=== PATIENT | female | born 1990 | race Caucasian/White ===

== ENCOUNTER 2017-08-31 22:05 | Inpatient (IN) | payer BC ==
[~2017-08-31] VITALS: Ht 160 cm; Wt 61.2 kg
[2017-08-31] MEDS ORDERED: CYMBALTA30 MG ORAL (22:10)
[2017-08-31] MEDS ORDERED: IMITREX50 MG ORAL (22:10)
--- NOTE | 2017-08-31 22:11 | Emergency Room Report ---
History of Present Illness General Chief Complaint: Overdose Source: Patient, EMS Present Illness HPI The patient is brought by EMS. She was found unresponsive by the manager hi of the rehabilitation where she is. She's been sober for 5 months but then relapsed using heroin today. She was not trying to take her life. Respiratory rate was 10 and her O2 sat was 70% when paramedics found her. She woke up with Narcan. No cough, chest pain, NVD, dysuria. No headache, no trauma. Not . She denies HIV or hepatitis C. Allergies: Coded Allergies: AMOXICILLIN (Verified Allergy, Unknown, 08/31/17) PENICILLINS (Verified Allergy, Unknown, 08/31/17) Patient History Past Medical History: see triage record Social History: Reports: smoking, drug use Social History Narrative in rehab facility Last Menstrual Period: last week Now: No Reviewed Nursing Documentation: PMH: Agreed, PSxH: Agreed Review of Systems All Other Systems: negative except mentioned in HPI Physical Exam Vital Signs Date Time Temp Pulse Resp B/P (MAP) Pulse Ox O2 Delivery O2 Flow Rate FiO2 08/31/17 22:02 97.5 109 22 114/94 97 Nasal Cannula 4.0 Sp02 EP Interpretation: reviewed, normal General Appearance: well appearing, no apparent distress, GCS 15 Head: normocephalic Eyes: bilateral eye normal inspection, bilateral eye PERRL ENT: moist mucus membranes Neck: supple Respiratory: lungs clear, normal breath sounds - anteriorly Cardiovascular #1: regular rate, rhythm Cardiovascular #2: 2+ radial (R) Gastrointestinal: normal inspection, normal bowel sounds, non tender, no mass, non-distended Musculoskeletal: back normal, gait/station normal, normal range of motion Neurologic: alert, oriented x3, reporting lead III-XII nml as tested, motor strength/tone normal, DTRs symmetric, sensory intact, cerebellar normal, speech normal Psychiatric: depressed affect Skin: normal inspection, warm/dry Medical Decision Making Diagnostic Impression: Primary Impression: Heroin overdose Qualified Codes: T40.1X1A - Poisoning by heroin, accidental (unintentional), initial encounter Additional Impressions: Pneumonia Qualified Codes: J69.0 - Pneumonitis due to inhalation of food and vomit Leukocytosis Qualified Codes: D72.828 - Other elevated white blood cell count ER Course Patient presents after heroin overdose. She woke up with Narcan. At this point we did cafeteria server to make sure that she doesn't relapse into respiratory arrest. In addition we need to exclude a non-cardiogenic or edema and aspiration. Evaluation of the his EKG, chest x-ray, labs. Addition to that she 'll be monitored on the petal cutter. Concern over possible anoxic injry to brain, though non-focal neuro at this time. No SI. X-rays abnormal with right-sided infiltrate. The patient is hypoxemic on oxygen. She has rales at the right base at this time. Blood cultures and antibiotics are begun. The patient needs admission to the hospital as to fairly dense infiltrate in the right lower lobe with increased cummings L also. Sats 98% ib 50% venti mask. Not need intubation. Still significant hypoxia. Will admit to tele Dr. Downey. Laboratory Tests Test 08/31/17 23:05 08/31/17 23:25 White Blood Count 23.6 K/UL (4.8-10.8) *H Red Blood Count 4.22 M/UL (4.20-5.40) Hemoglobin 14.0 G/DL (12.0-16.0) Hematocrit 41.1 % (37.0-47.0) Mean Corpuscular Volume 97 FL (80-99) Mean Corpuscular Hemoglobin 33.2 PG (27.0-31.0) H Mean Corpuscular Hemoglobin Concent 34.1 G/DL (32.0-36.0) Red Cell Distribution Width 11.3 % (11.6-14.8) L Platelet Count 248 K/UL (150-450) Mean Platelet Volume 9.3 FL (6.5-10.1) Neutrophils (%) (Auto) % (45.0-75.0) Lymphocytes (%) (Auto) % (20.0-45.0) Monocytes (%) (Auto) % (1.0-10.0) Eosinophils (%) (Auto) % (0.0-3.0) Basophils (%) (Auto) % (0.0-2.0) Differential Total Cells Counted 100 Neutrophils % (Manual) 85 % (45-75) H Lymphocytes % (Manual) 7 % (20-45) L Monocytes % (Manual) 5 % (1-10) Eosinophils % (Manual) 0 % (0-3) Basophils % (Manual) 0 % (0-2) Band Neutrophils 3 % (0-8) Platelet Estimate Adequate Platelet Morphology Normal Red Blood Cell Morphology Normal Sodium Level 138 mEQ/L (135-145) Potassium Level 3.6 mEQ/L (3.4-4.9) Chloride Level 100 mEQ/L (98-107) Carbon Dioxide Level 27 mEQ/L (20-30) Anion Gap 11 (5-15) Blood Urea Nitrogen 14 mg/dL (7-23) Creatinine 1.0 mg/dL (0.5-0.9) H Estimate Glomerular Filtration Rate > 60 mL/min (>60) Glucose Level 154 mg/dL (74-106) H Calcium Level 8.9 mg/dL (8.6-10.2) Total Bilirubin 0.3 mg/dL (0.0-1.2) Aspartate Amino Transferase (AST) 29 U/L (5-40) Alanine Aminotransferase (ALT) 19 U/L (3-33) Alkaline Phosphatase 49 U/L (35-104) Total Creatine Kinase 71 U/L (26-140) Total Protein 7.2 g/dL (6.6-8.7) Albumin 4.6 g/dL (3.5-5.2) Globulin 2.6 g/dL Albumin/Globulin Ratio 1.7 (1.0-2.7) Salicylates Level < 1 mg/dL (10-30) L Acetaminophen Level < 10 ug/mL (10-30) L Serum Alcohol < 10 mg/dL Urine HCG, Qualitative Negative EKG Diagnostic Results Rate: tachycardiac ST Segments: no acute changes Rhythm Strip Diag. Results EP Interpretation: yes Rhythm: no PVC's, no ectopy, other - Sinus tachycardia Chest X-Ray Diagnostic Results Chest X-Ray Diagnostic Results : Chest X-Ray Ordered: Yes # of Views/Limited/Complete: 1 View Indication: Other Interpretation: no effusion, no pneumothorax, other - Bilateral infiltrates. Right lower lobe dense infiltrate Impression: Other Electronically Signed by: Electronically signed by Rickey Hughes MD Last Vital Signs Date Time Temp Pulse Resp B/P (MAP) Pulse Ox O2 Delivery O2 Flow Rate FiO2 09/02/17 00:44 97.9 80 18 109/62 97 Room Air 09/01/17 08:43 50 09/01/17 04:25 12.0 Status: improved Disposition: ADMITTED INPATIENT Condition: Serious Rickey Hughes M.D. Aug 31, 2017 22:11
[2017-08-31 23:24] LABS: MEAN CORPUSCULAR HEMOGLOBIN 33.2 PG (27.0-31.0); MEAN CORPUSCULAR HGB CONC 34.1 G/DL (32.0-36.0); MEAN CORPUSCULAR VOLUME 97 FL (80-99); MEAN PLATELET VOLUME 9.3 FL (6.5-10.1); PLATELET COUNT 248 K/UL (150-450); RED BLOOD COUNT 4.22 M/UL (4.20-5.40); RED CELL DISTRIBUTION WIDTH 11.3 % (11.6-14.8)
[2017-08-31 23:48] LABS: ACETAMINOPHEN < 10 ug/mL (10-30); ALANINE AMINOTRANSFERASE 19 U/L (3-33); ALBUMIN/GLOBULIN RATIO 1.7 (1.0-2.7); ALCOHOL < 10 mg/dL; ANION GAP 11 (5-15); ASPARTATE AMINO TRANSFERASE 29 U/L (5-40); CALCIUM 8.9 mg/dL (8.6-10.2); CARBON DIOXIDE 27 mEQ/L (20-30); CHLORIDE 100 mEQ/L (98-107); GLOMERULAR FILTRATION RATE > 60 mL/min (>60); HEMOLYSIS 5; POTASSIUM 3.6 mEQ/L (3.4-4.9); SODIUM 138 mEQ/L (135-145); TOTAL PROTEIN 7.2 g/dL (6.6-8.7)
[2017-08-31 23:57] LABS: WHITE BLOOD COUNT 23.6 K/UL (4.8-10.8)
[2017-09-01] VITALS (7 sets, daily range): BP systolic 90–127; BP diastolic 38–69
[2017-09-01 00:40] LABS: BAND NEUTROPHILS % (MANUAL) 3 % (0-8); BASOPHILS % (MANUAL) 0 % (0-2); EOSINOPHILS % (MANUAL) 0 % (0-3); LYMPHOCYTES % (MANUAL) 7 % (20-45); NEUTROPHILS % (MANUAL) 85 % (45-75); PLATELET ESTIMATE ADEQUATE; PLATELET MORPHOLOGY NORMAL; TOTAL CELLS COUNTED 100
[2017-09-01] MEDS ORDERED: cefTRIAXone 1 GM in NS 55 ML IVPB ONE (01:15)
[2017-09-01] MEDS ORDERED: Azithromycin 500 MG in D5W 275 ML IVPB ONE (01:15)
[2017-09-01] MEDS ORDERED: Vancomycin 1 GM in D5W 275 ML IVPB ONE (01:30)
[2017-09-01] MEDS ORDERED: MODAFINIL100 MG ORAL (02:02)
[2017-09-01] MEDS ORDERED: TRAZODONE HCL150 MG ORAL (02:02)
[2017-09-01] MEDS ORDERED: Ipratropium 0.02% Inh Soln 2.5ml UD HHN ONE (02:30)
[2017-09-01] MEDS ORDERED: Albuterol ud Inhalation HHN ONE (02:30)
[2017-09-01] MEDS ORDERED: Vancomycin 1gm inj IVPB ONE (03:24)
[2017-09-01] MEDS ORDERED: DOXEPIN HCL100 MG ORAL (05:23)
[2017-09-01] MEDS ORDERED: IMITREX50 MG ORAL (05:23)
[2017-09-01] MEDS ORDERED: Azithromycin 500mg Inj IV ONE (05:53)
[2017-09-01] MEDS ORDERED: SUMAtriptan 100mg tab ORAL PRN (07:15)
[2017-09-01] MEDS: D5 1/2NS 1,000 ML IV SCH ×3 (08:11→21:45)
--- NOTE | 2017-09-01 10:19 | Diagnostic Imaging Report ---
Indication: Dyspnea Comparison: None A single view chest radiograph was obtained. Findings: Hazy pulmonary opacities, primarily groundglass noted bilaterally. Heart size appears normal. The bones are unremarkable in appearance. Impression: Bilateral infiltrates versus noncardiogenic pulmonary edema. Please correlate clinically.
--- NOTE | 2017-09-01 14:33 | Diagnostic Imaging Report ---
Indication: Dyspnea Comparison: 08/31/17 A single view chest radiograph was obtained. Findings: Interstitial edema seen previously has resolved. Lungs appear clear currently with normal vascularity and heart size. No effusions are seen. The bones are unremarkable. Impression: Negative chest. Interval resolution of interstitial edema
[2017-09-01] MEDS ORDERED: VIIBRYD20 MG PO (14:38)
[2017-09-01] MEDS ORDERED: Promethazine/Codeine 5ml UD ORAL PRN ×2 (14:45→22:45)
[2017-09-01 15:28] LABS: BASOPHILS % (AUTO) 0.8 % (0.0-2.0); LYMPHOCYTES % (AUTO) 25.1 % (20.0-45.0); MEAN CORPUSCULAR HEMOGLOBIN 33.8 PG (27.0-31.0); MEAN CORPUSCULAR HGB CONC 34.5 G/DL (32.0-36.0); MEAN CORPUSCULAR VOLUME 98 FL (80-99); MEAN PLATELET VOLUME 9.8 FL (6.5-10.1); PLATELET COUNT 176 K/UL (150-450); RED BLOOD COUNT 3.57 M/UL (4.20-5.40); WHITE BLOOD COUNT 7.6 K/UL (4.8-10.8)
--- NOTE | 2017-09-01 15:42 | Consultation ---
History of Present Illness General Date patient seen: Sep 01, 2017 Chief Complaint: Overdose Reason for Consultation: pulmonary edema Present Illness HPI 27 year old heroin addict brought by EMS after she was found unresponsive by the manager legal of the rehabilitation where she is. She's been sober for 5 months but then relapsed into heroin today. She was not trying to take her life. Respiratory rate was 10 and her O2 sat was 70% when paramedics found her. She woke up with Narcan. she is admitted to telemetry. Her CXR showed pulmonary edema. Allergies: Coded Allergies: AMOXICILLIN (Verified Allergy, Unknown, 08/31/17) PENICILLINS (Verified Allergy, Unknown, 08/31/17) Medication History Scheduled Doxepin Hcl (Doxepin Hcl*), 100 MG ORAL BEDTIME, (Reported) Modafinil* (Provigil), 100 MG ORAL DAILY, (Reported) Sumatriptan Succinate* (Imitrex*), Unknown Dose ORAL DAILY PRN MIGRAINE, ( Reported) Trazodone* (Trazodone*), 100 MG ORAL BEDTIME, (Reported) Vilazodone Hydrochloride (Viibryd), 20 MG PO DAILY, (Reported) Scheduled PRN Sumatriptan Succinate* (Imitrex*), 100 MG ORAL PRN PRN for Migraine, (Reported) Discontinued Medications Duloxetine Hcl* (Cymbalta*), Unknown Dose ORAL DAILY, (Reported) Discontinued Reason: Pt stopped taking med Patient History Healthcare decision maker Resuscitation status Full Code Advanced Directive on File Past Medical/Surgical History Past Medical/Surgical History: (1) depressio Review of Systems Constitutional: Reports: no symptoms Eye: Reports: no symptoms ENT: Reports: no symptoms Respiratory: Reports: no symptoms Physical Exam General Appearance: WD/WN Lines, tubes and drains: peripheral HEENT: normocephalic, mucous membranes moist Respiratory/Chest: chest wall non-tender, lungs clear Breasts: no masses Cardiovascular/Chest: normal peripheral pulses Abdomen: normal bowel sounds, non tender Genitourinary/Rectal: normal genital exam Last 24 Hour Vital Signs Date Time Temp Pulse Resp B/P (MAP) Pulse Ox O2 Delivery O2 Flow Rate FiO2 09/01/17 11:59 97.0 91 16 90/60 100 Venturi Mask 09/01/17 09:08 96.3 09/01/17 08:43 96.3 94 16 90/38 99 Venturi Mask 50 09/01/17 08:00 101 09/01/17 05:00 100 09/01/17 04:25 97.7 96 17 93/52 98 Room Air 12.0 50 09/01/17 04:00 97.0 62 20 127/68 95 Room Air 09/01/17 04:00 97.7 96 17 93/52 98 Room Air 12.0 50 09/01/17 04:00 97.7 100 23 96/52 96 Room Air 09/01/17 03:10 100 18 100 Venturi Mask 12.0 50 09/01/17 02:53 85 19 Venturi Mask 12.0 50 09/01/17 02:53 86 19 99 Venturi Mask 12.0 50 09/01/17 01:44 97.3 94 15 92/52 93 2.0 08/31/17 22:13 109 22 Nasal Cannula 2.0 08/31/17 22:02 97.5 109 22 114/94 97 Nasal Cannula 4.0 Intake and Output 09/01/17 09/02/17 19:00 07:00 Intake Total 450 ml Balance 450 ml Intake Oral 450 ml # Voids 5 Laboratory Tests Test 08/31/17 23:05 08/31/17 23:25 09/01/17 01:36 09/01/17 14:50 White Blood Count 23.6 K/UL (4.8-10.8) *H Pending Red Blood Count 4.22 M/UL (4.20-5.40) Pending Hemoglobin 14.0 G/DL (12.0-16.0) Pending Hematocrit 41.1 % (37.0-47.0) Pending Mean Corpuscular Volume 97 FL (80-99) Pending Mean Corpuscular Hemoglobin 33.2 PG (27.0-31.0) H Pending Mean Corpuscular Hemoglobin Concent 34.1 G/DL (32.0-36.0) Pending Red Cell Distribution Width 11.3 % (11.6-14.8) L Pending Platelet Count 248 K/UL (150-450) Pending Mean Platelet Volume 9.3 FL (6.5-10.1) Pending Neutrophils (%) (Auto) % (45.0-75.0) Pending Lymphocytes (%) (Auto) % (20.0-45.0) Pending Monocytes (%) (Auto) % (1.0-10.0) Pending Eosinophils (%) (Auto) % (0.0-3.0) Pending Basophils (%) (Auto) % (0.0-2.0) Pending Differential Total Cells Counted 100 Neutrophils % (Manual) 85 % (45-75) H Lymphocytes % (Manual) 7 % (20-45) L Monocytes % (Manual) 5 % (1-10) Eosinophils % (Manual) 0 % (0-3) Basophils % (Manual) 0 % (0-2) Band Neutrophils 3 % (0-8) Platelet Estimate Adequate Platelet Morphology Normal Red Blood Cell Morphology Normal Sodium Level 138 mEQ/L (135-145) Pending Potassium Level 3.6 mEQ/L (3.4-4.9) Pending Chloride Level 100 mEQ/L (98-107) Pending Carbon Dioxide Level 27 mEQ/L (20-30) Pending Anion Gap 11 (5-15) Blood Urea Nitrogen 14 mg/dL (7-23) Pending Creatinine 1.0 mg/dL (0.5-0.9) H Pending Estimat Glomerular Filtration Rate > 60 mL/min (>60) Pending Glucose Level 154 mg/dL (74-106) H Pending Calcium Level 8.9 mg/dL (8.6-10.2) Pending Total Bilirubin 0.3 mg/dL (0.0-1.2) Pending Aspartate Amino Transf (AST/SGOT) 29 U/L (5-40) Pending Alanine Aminotransferase (ALT/SGPT) 19 U/L (3-33) Pending Alkaline Phosphatase 49 U/L (35-104) Pending Total Creatine Kinase 71 U/L (26-140) Total Protein 7.2 g/dL (6.6-8.7) Pending Albumin 4.6 g/dL (3.5-5.2) Pending Globulin 2.6 g/dL Pending Albumin/Globulin Ratio 1.7 (1.0-2.7) Salicylates Level < 1 mg/dL (10-30) L Acetaminophen Level < 10 ug/mL (10-30) L Serum Alcohol < 10 mg/dL Urine HCG, Qualitative Negative Urine Opiates Screen Positive (NEGATIVE) H Urine Barbiturates Screen Negative (NEGATIVE) Phencyclidine (PCP) Screen Negative (NEGATIVE) Urine Amphetamines Screen Negative (NEGATIVE) Urine Benzodiazepines Screen Negative (NEGATIVE) Urine Cocaine Screen Negative (NEGATIVE) Urine Marijuana (THC) Screen Negative (NEGATIVE) Lactic Acid Level 0.90 mmol/L (0.66-2.22) Pro-B-Type Natriuretic Peptide Pending Height (Feet): 5 Height (Inches): 3.00 Weight (Pounds): 135 Medications Current Medications Medications (Trade) Dose Ordered Sig/Madhavi Route PRN Reason Start Time Stop Time Status Last Admin Dose Admin Acetaminophen (Tylenol) 650 mg Q6H PRN ORAL Mild Pain/Temp > 100.5 09/01/17 07:15 10/01/17 07:14 Ceftriaxone Sodium 1 gm/ Dextrose 55 ml @ 110 mls/hr Q24H IVPB 09/02/17 01:00 09/09/17 00:59 Dextrose/Sodium Chloride 1,000 ml @ 125 mls/hr Q8H IV 09/01/17 07:30 10/01/17 07:29 09/01/17 08:11 Ibuprofen (Motrin) 800 mg Q6H PRN ORAL Moderate Pain (Pain Scale 4-6) 09/01/17 07:15 10/01/17 07:14 09/01/17 08:09 Non-Formulary Medication (Non-Formulary Med) 1 ea DAILY ORAL 09/02/17 09:00 10/02/17 08:59 UNV Ondansetron HCl (Zofran) 4 mg Q6H PRN IVP Nausea & Vomiting 09/01/17 07:15 10/01/17 07:14 Promethazine HCl/ Codeine (Phenergan with Codeine) 5 ml Q4H PRN ORAL For Cough 09/01/17 14:45 10/01/17 14:44 Sumatriptan Succinate (Imitrex) 100 mg DAILYPRN PRN ORAL for migraine 09/01/17 07:15 10/01/17 07:14 09/01/17 11:43 Trazodone HCl (Desyrel) 100 mg BEDTIME ORAL 09/01/17 21:00 10/01/17 20:59 Vancomycin HCl (Vanco rx to dose) 1 ea DAILY PRN MISC Per rx protocol 09/01/17 07:15 10/01/17 07:14 Vancomycin/Sodium Chloride 250 ml @ 166.667 mls/hr Q12HR@0400,1600 IVPB 09/01/17 16:00 09/06/17 15:59 Assessment/Plan Problem List: (1) Pulmonary edema ICD Codes: J81.1 - Chronic pulmonary edema SNOMED: 76323419 (2) Leukocytosis ICD Codes: D72.829 - Elevated white blood cell count, unspecified SNOMED: 669271500, 312325676 (3) Heroin overdose ICD Codes: T40.1X1A - Poisoning by heroin, accidental (unintentional), initial encounter SNOMED: 336562655, 02758148 (4) Depression ICD Codes: F32.9 - Major depressive disorder, single episode, unspecified SNOMED: 09365720 Assessment/Plan repeat cxr repeat wbc HIV testing might go home is wbc is normal AYUSH DESAI Sep 01, 2017 15:42
[2017-09-01 15:48] LABS: ALANINE AMINOTRANSFERASE 15 U/L (3-33); ALBUMIN/GLOBULIN RATIO 1.8 (1.0-2.7); ANION GAP 10 (5-15); ASPARTATE AMINO TRANSFERASE 25 U/L (5-40); CALCIUM 8.5 mg/dL (8.6-10.2); CARBON DIOXIDE 26 mEQ/L (20-30); CHLORIDE 104 mEQ/L (98-107); CREATININE 0.9 mg/dL (0.5-0.9); GLOMERULAR FILTRATION RATE > 60 mL/min (>60); HEMOLYSIS 4; POTASSIUM 3.3 mEQ/L (3.4-4.9); SODIUM 140 mEQ/L (135-145)
[2017-09-01] MEDS ORDERED: Vancomycin 750mg/NS 250ml IVPB SCH (16:00)
--- NOTE | 2017-09-01 17:18 | History & Physical ---
History and Physical History & Physicial Nnamdi Downey MD Sep 01, 2017 17:18
[2017-09-01] MEDS ORDERED: TraZODone 100mg tab ORAL SCH (21:00)
[2017-09-01] MEDS ORDERED: Norco 10mg/325mg tab ORAL PRN (21:45)
[2017-09-01] MEDS ORDERED: Cyclobenzaprine 10mg Tab ORAL PRN (21:45)
[2017-09-02 00:44] VITALS: BP 109/62
[2017-09-02] MEDS ORDERED: cefTRIAXone 1 GM in D5W 55 ML IVPB SCH (01:00)
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
[2017-09-02 04:00] VITALS: BP 101/57
[2017-09-02] MEDS ORDERED: Vancomycin 750mg/NS 250ml 250 ML IVPB SCH (04:00)
[2017-09-02] MEDS: D5 1/2NS 1,000 ML IV SCH ×3 (06:00→21:46)
[2017-09-02 07:09] LABS: BASOPHILS % (AUTO) 1.3 % (0.0-2.0); EOSINOPHILS % (AUTO) 2.5 % (0.0-3.0); LYMPHOCYTES % (AUTO) 38.8 % (20.0-45.0); MEAN CORPUSCULAR HEMOGLOBIN 32.5 PG (27.0-31.0); MEAN CORPUSCULAR HGB CONC 33.3 G/DL (32.0-36.0); MEAN CORPUSCULAR VOLUME 98 FL (80-99); MEAN PLATELET VOLUME 9.9 FL (6.5-10.1); MONOCYTES % (AUTO) 8.9 % (1.0-10.0); NEUTROPHILS % (AUTO) 48.4 % (45.0-75.0); PLATELET COUNT 153 K/UL (150-450); RED BLOOD COUNT 3.51 M/UL (4.20-5.40); WHITE BLOOD COUNT 5.6 K/UL (4.8-10.8)
[2017-09-02 07:27] LABS: ANION GAP 11 (5-15); CALCIUM 8.4 mg/dL (8.6-10.2); CARBON DIOXIDE 26 mEQ/L (20-30); CHLORIDE 108 mEQ/L (98-107); CREATININE 0.8 mg/dL (0.5-0.9); GLOMERULAR FILTRATION RATE > 60 mL/min (>60); HEMOLYSIS 5; MAGNESIUM 1.7 mg/dL (1.7-2.5); PHOSPHORUS 2.3 mg/dL (2.5-4.8); POTASSIUM 3.7 mEQ/L (3.4-4.9); SODIUM 145 mEQ/L (135-145)
[2017-09-02 08:00] VITALS: BP_SYST 103; BP_SYST 86; BP_DIAS 52; BP_DIAS 63
[2017-09-02 12:00] VITALS: BP 131/73
--- NOTE | 2017-09-02 13:27 | Internal Med Progress Note ---
Subjective Date of Service: Sep 02, 2017 Physician Name Nnamdi Parrish Attending Physician Nnamdi Downey MD Current Medications Medications (Trade) Dose Ordered Sig/Madhavi Route PRN Reason Start Time Stop Time Status Last Admin Dose Admin Acetaminophen (Tylenol) 650 mg Q6H PRN ORAL Mild Pain/Temp > 100.5 09/02/17 01:15 10/01/17 07:14 Dextrose/Sodium Chloride 1,000 ml @ 125 mls/hr Q8H IV 09/01/17 21:45 10/01/17 07:29 09/02/17 06:00 Ibuprofen (Motrin) 800 mg Q6H PRN ORAL Moderate Pain (Pain Scale 4-6) 09/02/17 01:15 10/01/17 07:14 Non-Formulary Medication (Non-Formulary Med) 1 ea DAILY ORAL 09/02/17 09:00 10/02/17 08:59 UNV Ondansetron HCl (Zofran) 4 mg Q6H PRN IVP Nausea & Vomiting 09/02/17 01:15 10/01/17 07:14 Promethazine HCl/ Codeine (Phenergan with Codeine) 5 ml Q4H PRN ORAL For Cough 09/01/17 22:45 10/01/17 14:44 Sumatriptan Succinate (Imitrex) 100 mg DAILYPRN PRN ORAL for migraine 09/02/17 07:15 10/01/17 07:14 Trazodone HCl (Desyrel) 100 mg BEDTIME ORAL 09/02/17 21:00 10/01/17 20:59 Vancomycin HCl (Vanco rx to dose) 1 ea DAILY PRN MISC Per rx protocol 09/02/17 09:00 10/01/17 07:14 Vancomycin/Sodium Chloride 250 ml @ 166.667 mls/hr Q12HR@0400,1600 IVPB 09/02/17 04:00 09/06/17 15:59 09/02/17 04:45 Allergies: Coded Allergies: AMOXICILLIN (Verified Allergy, Unknown, 08/31/17) PENICILLINS (Verified Allergy, Unknown, 08/31/17) ROS Limited/Unobtainable: No Constitutional: Reports: no symptoms HEENT: Reports: no symptoms Cardiovascular: Reports: no symptoms Respiratory: Reports: no symptoms Gastrointestinal/Abdominal: Reports: no symptoms Genitourinary: Reports: no symptoms Neurologic/Psychiatric: Reports: no symptoms Subjective 27 YO F admitted with respiratory failure and pneumonia. Cover for Int Patrick-Dr Downey Objective Last Vital Signs Date Time Temp Pulse Resp B/P (MAP) Pulse Ox O2 Delivery O2 Flow Rate FiO2 09/02/17 08:00 98.6 86 17 103/63 97 Room Air 09/01/17 08:43 50 09/01/17 04:25 12.0 General Appearance: WD/WN, alert, mild distress EENT: PERRL/EOMI, normal ENT inspection, TMs normal Neck: non-tender, normal alignment, supple Cardiovascular: normal peripheral pulses, normal rate, regular rhythm, no gallop/murmur, no JVD Respiratory/Chest: respiratory distress, decreased breath sounds, crackles/ rales, expiratory wheezing Abdomen: normal bowel sounds, non tender, soft, no organomegaly, no mass Extremities: normal range of motion Neurologic: senior power scheduler II-XII grossly normal, no motor/sensory deficits Skin: normal pigmentation, warm/dry Laboratory Tests Test 09/01/17 14:50 09/02/17 05:45 White Blood Count 7.6 K/UL (4.8-10.8) # 5.6 K/UL (4.8-10.8) Red Blood Count 3.57 M/UL (4.20-5.40) L 3.51 M/UL (4.20-5.40) L Hemoglobin 12.1 G/DL (12.0-16.0) 11.4 G/DL (12.0-16.0) L Hematocrit 35.0 % (37.0-47.0) L 34.3 % (37.0-47.0) L Mean Corpuscular Volume 98 FL (80-99) 98 FL (80-99) Mean Corpuscular Hemoglobin 33.8 PG (27.0-31.0) H 32.5 PG (27.0-31.0) H Mean Corpuscular Hemoglobin Concent 34.5 G/DL (32.0-36.0) 33.3 G/DL (32.0-36.0) Red Cell Distribution Width 11.0 % (11.6-14.8) L 11.0 % (11.6-14.8) L Platelet Count 176 K/UL (150-450) 153 K/UL (150-450) Mean Platelet Volume 9.8 FL (6.5-10.1) 9.9 FL (6.5-10.1) Neutrophils (%) (Auto) 62.0 % (45.0-75.0) 48.4 % (45.0-75.0) Lymphocytes (%) (Auto) 25.1 % (20.0-45.0) 38.8 % (20.0-45.0) Monocytes (%) (Auto) 11.0 % (1.0-10.0) H 8.9 % (1.0-10.0) Eosinophils (%) (Auto) 1.0 % (0.0-3.0) 2.5 % (0.0-3.0) Basophils (%) (Auto) 0.8 % (0.0-2.0) 1.3 % (0.0-2.0) Sodium Level 140 mEQ/L (135-145) 145 mEQ/L (135-145) Potassium Level 3.3 mEQ/L (3.4-4.9) L 3.7 mEQ/L (3.4-4.9) Chloride Level 104 mEQ/L (98-107) 108 mEQ/L (98-107) H Carbon Dioxide Level 26 mEQ/L (20-30) 26 mEQ/L (20-30) Anion Gap 10 (5-15) 11 (5-15) Blood Urea Nitrogen 11 mg/dL (7-23) 12 mg/dL (7-23) Creatinine 0.9 mg/dL (0.5-0.9) 0.8 mg/dL (0.5-0.9) Estimat Glomerular Filtration Rate > 60 mL/min (>60) > 60 mL/min (>60) Glucose Level 97 mg/dL (74-106) 123 mg/dL (74-106) H Calcium Level 8.5 mg/dL (8.6-10.2) L 8.4 mg/dL (8.6-10.2) L Total Bilirubin 0.4 mg/dL (0.0-1.2) Aspartate Amino Transf (AST/SGOT) 25 U/L (5-40) Alanine Aminotransferase (ALT/SGPT) 15 U/L (3-33) Alkaline Phosphatase 38 U/L (35-104) Pro-B-Type Natriuretic Peptide 947 pg/mL (0-125) H Total Protein 6.0 g/dL (6.6-8.7) L Albumin 3.9 g/dL (3.5-5.2) Globulin 2.1 g/dL Albumin/Globulin Ratio 1.8 (1.0-2.7) Phosphorus Level 2.3 mg/dL (2.5-4.8) L Magnesium Level 1.7 mg/dL (1.7-2.5) Microbiology Date/Time Source Procedure Growth Status 09/01/17 01:25 Blood Blood Culture - Preliminary Resulted 09/01/17 01:10 Blood Blood Culture - Preliminary NO GROWTH AFTER 24 HOURS Resulted 09/01/17 04:20 Nasal Nares MRSA Culture - Final NO METHICILLIN RESISTANT STAPH AUREUS... Complete Intake and Output 09/02/17 09/03/17 19:00 07:00 Intake Total 300 ml Balance 300 ml Intake Oral 300 ml # Voids 1 Assessment/Plan Problem List: (1) Opiate dependence, continuous (2) Heroin overdose Assessment & Plan: S/P narcan (3) Pneumonia Assessment & Plan: Cont IV vanco (4) Leukocytosis (5) Pulmonary edema (6) Depression Assessment & Plan: Cont vibrid Status: progressing Assessment/Plan Discharge planning: Sober living vs [facility] NNAMDI PARRISH Sep 02, 2017 13:27
[2017-09-02 16:00] VITALS: BP 116/75
--- NOTE | 2017-09-02 16:10 | Pulmonology Progress Note ---
Assessment/Plan Problems: (1) Bacteremia (2) Pulmonary edema (3) Leukocytosis (4) Depression (5) Heroin overdose Assessment/Plan iv abx check cultures ID evaluation Subjective ROS Limited/Unobtainable: No Constitutional: Reports: no symptoms HEENT: Repors: no symptoms Allergies: Coded Allergies: AMOXICILLIN (Verified Allergy, Unknown, 08/31/17) PENICILLINS (Verified Allergy, Unknown, 08/31/17) Objective Last 24 Hour Vital Signs Date Time Temp Pulse Resp B/P (MAP) Pulse Ox O2 Delivery O2 Flow Rate FiO2 09/02/17 12:00 97.9 65 18 131/73 96 Room Air 09/02/17 08:00 98.6 86 17 103/63 97 Room Air 09/02/17 04:00 97.4 81 18 101/57 97 Room Air 09/02/17 00:44 97.9 80 18 109/62 97 Room Air 09/01/17 21:30 97.8 88 19 100/69 98 Room Air 09/01/17 20:00 97.9 92 16 100/65 99 Room Air Intake and Output 09/02/17 09/03/17 19:00 07:00 Intake Total 1475 ml Balance 1475 ml Intake Oral 600 ml IV Total 875 ml # Voids 2 General Appearance: WD/WN HEENT: normocephalic, atraumatic Respiratory/Chest: chest wall non-tender, lungs clear Breasts: no masses Cardiovascular: normal peripheral pulses Abdomen: normal bowel sounds, no organomegaly Skin: no rash 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 Complete Laboratory Tests 09/02/17 05:45: White Blood Count 5.6, Red Blood Count 3.51L, Hemoglobin 11.4L, Hematocrit 34.3L , Mean Corpuscular Volume 98, Mean Corpuscular Hemoglobin 32.5H, Mean Corpuscular Hemoglobin Concent 33.3, Red Cell Distribution Width 11.0L, Platelet Count 153, Mean Platelet Volume 9.9, Neutrophils (%) (Auto) 48.4, Lymphocytes (%) (Auto) 38.8, Monocytes (%) (Auto) 8.9, Eosinophils (%) (Auto) 2.5, Basophils (%) (Auto) 1.3, Sodium Level 145, Potassium Level 3.7, Chloride Level 108H, Carbon Dioxide Level 26, Anion Gap 11, Blood Urea Nitrogen 12, Creatinine 0.8, Estimat Glomerular Filtration Rate > 60, Glucose Level 123H, Calcium Level 8.4L, Phosphorus Level 2.3L, Magnesium Level 1.7 09/02/17 15:30: Vancomycin Level Trough [Pending] Current Medications Medications (Trade) Dose Ordered Sig/Madhavi Route PRN Reason Start Time Stop Time Status Last Admin Dose Admin Acetaminophen (Tylenol) 650 mg Q6H PRN ORAL Mild Pain/Temp > 100.5 09/02/17 01:15 10/01/17 07:14 Dextrose/Sodium Chloride 1,000 ml @ 125 mls/hr Q8H IV 09/01/17 21:45 10/01/17 07:29 09/02/17 14:13 Ibuprofen (Motrin) 800 mg Q6H PRN ORAL Moderate Pain (Pain Scale 4-6) 09/02/17 01:15 10/01/17 07:14 Non-Formulary Medication (Non-Formulary Med) 1 ea DAILY ORAL 09/02/17 09:00 10/02/17 08:59 UNV Ondansetron HCl (Zofran) 4 mg Q6H PRN IVP Nausea & Vomiting 09/02/17 01:15 10/01/17 07:14 Promethazine HCl/ Codeine (Phenergan with Codeine) 5 ml Q4H PRN ORAL For Cough 09/01/17 22:45 10/01/17 14:44 Sumatriptan Succinate (Imitrex) 100 mg DAILYPRN PRN ORAL for migraine 09/02/17 07:15 10/01/17 07:14 Trazodone HCl (Desyrel) 100 mg BEDTIME ORAL 09/02/17 21:00 10/01/17 20:59 Vancomycin HCl (Vanco rx to dose) 1 ea DAILY PRN MISC Per rx protocol 09/02/17 09:00 10/01/17 07:14 Vancomycin/Sodium Chloride 250 ml @ 166.667 mls/hr Q12HR@0400,1600 IV 09/02/17 04:00 09/06/17 15:59 09/02/17 04:45 AYUSH DESAI Sep 02, 2017 16:10
[2017-09-02] MEDS ORDERED: Vancomycin 1250mg/D5W 250ml 250 ML IVPB ONE (17:00)
[2017-09-02 20:00] VITALS: BP 125/85
[2017-09-02] MEDS: TraZODone 100mg tab ORAL SCH (20:31)
[2017-09-02] MEDS: SUMAtriptan 100mg tab ORAL PRN (21:27)
[2017-09-03 00:16] VITALS: BP 112/70
[2017-09-03] MEDS: D5 1/2NS 1,000 ML IV SCH ×3 (03:46→21:45)
[2017-09-03 04:00] VITALS: BP 106/60
[2017-09-03] MEDS: Vancomycin 1 GM in NS 275 ML IVPB SCH ×2 (05:10→16:51)
[2017-09-03 07:45] LABS: BASOPHILS % (AUTO) 1.4 % (0.0-2.0); EOSINOPHILS % (AUTO) 4.7 % (0.0-3.0); LYMPHOCYTES % (AUTO) 41.2 % (20.0-45.0); MEAN CORPUSCULAR HEMOGLOBIN 33.3 PG (27.0-31.0); MEAN CORPUSCULAR HGB CONC 34.5 G/DL (32.0-36.0); MEAN CORPUSCULAR VOLUME 96 FL (80-99); MEAN PLATELET VOLUME 9.7 FL (6.5-10.1); MONOCYTES % (AUTO) 9.6 % (1.0-10.0); PLATELET COUNT 171 K/UL (150-450); RED BLOOD COUNT 3.74 M/UL (4.20-5.40); RED CELL DISTRIBUTION WIDTH 10.8 % (11.6-14.8); WHITE BLOOD COUNT 5.4 K/UL (4.8-10.8)
[2017-09-03 08:12] LABS: ANION GAP 12 (5-15); CALCIUM 8.7 mg/dL (8.6-10.2); CARBON DIOXIDE 25 mEQ/L (20-30); CHLORIDE 105 mEQ/L (98-107); CREATININE 0.8 mg/dL (0.5-0.9); GLOMERULAR FILTRATION RATE > 60 mL/min (>60); HEMOLYSIS 5; POTASSIUM 3.5 mEQ/L (3.4-4.9); SODIUM 142 mEQ/L (135-145)
--- NOTE | 2017-09-03 11:14 | Infectious Diseases Prog Note ---
Assessment/Plan Assessment/Plan ID consult dictated # [id number] Subjective Allergies: Coded Allergies: AMOXICILLIN (Verified Allergy, Unknown, 08/31/17) PENICILLINS (Verified Allergy, Unknown, 08/31/17) Objective Vital Signs Last 24 Hour Vital Signs Date Time Temp Pulse Resp B/P (MAP) Pulse Ox O2 Delivery O2 Flow Rate FiO2 09/03/17 04:00 97.5 66 18 106/60 98 Room Air 09/03/17 00:16 97.5 62 19 112/70 97 Room Air 09/02/17 20:00 97.7 71 18 125/85 98 Room Air 09/02/17 16:00 97.4 68 16 116/75 98 Room Air 09/02/17 12:00 97.9 65 18 131/73 96 Room Air Height (Feet): 5 Height (Inches): 3.00 Weight (Pounds): 135 Microbiology Date/Time Source Procedure Growth Status 09/01/17 01:25 Blood Blood Culture - Preliminary Resulted 09/01/17 01:10 Blood Blood Culture - Preliminary NO GROWTH AFTER 48 HOURS Resulted 09/01/17 04:20 Nasal Nares MRSA Culture - Final NO METHICILLIN RESISTANT STAPH AUREUS... Complete 09/01/17 04:20 Rectum VRE Culture - Final NO VANCOMYCIN RESISTANT ENTEROCOCCUS ... Complete Laboratory Tests Test 09/02/17 15:30 09/03/17 05:35 Vancomycin Level Trough 6.0 ug/mL (5.0-12.0) White Blood Count 5.4 K/UL (4.8-10.8) Red Blood Count 3.74 M/UL (4.20-5.40) L Hemoglobin 12.4 G/DL (12.0-16.0) Hematocrit 36.1 % (37.0-47.0) L Mean Corpuscular Volume 96 FL (80-99) Mean Corpuscular Hemoglobin 33.3 PG (27.0-31.0) H Mean Corpuscular Hemoglobin Concent 34.5 G/DL (32.0-36.0) Red Cell Distribution Width 10.8 % (11.6-14.8) L Platelet Count 171 K/UL (150-450) Mean Platelet Volume 9.7 FL (6.5-10.1) Neutrophils (%) (Auto) 43.0 % (45.0-75.0) L Lymphocytes (%) (Auto) 41.2 % (20.0-45.0) Monocytes (%) (Auto) 9.6 % (1.0-10.0) Eosinophils (%) (Auto) 4.7 % (0.0-3.0) H Basophils (%) (Auto) 1.4 % (0.0-2.0) Sodium Level 142 mEQ/L (135-145) Potassium Level 3.5 mEQ/L (3.4-4.9) Chloride Level 105 mEQ/L (98-107) Carbon Dioxide Level 25 mEQ/L (20-30) Anion Gap 12 (5-15) Blood Urea Nitrogen 10 mg/dL (7-23) Creatinine 0.8 mg/dL (0.5-0.9) Estimat Glomerular Filtration Rate > 60 mL/min (>60) Glucose Level 88 mg/dL (74-106) Calcium Level 8.7 mg/dL (8.6-10.2) HIV (1&2) Antibody Rapid Negative (NEGATIVE) Current Medications Medications (Trade) Dose Ordered Sig/Madhavi Route PRN Reason Start Time Stop Time Status Last Admin Dose Admin Acetaminophen (Tylenol) 650 mg Q6H PRN ORAL Mild Pain/Temp > 100.5 09/02/17 01:15 10/01/17 07:14 Dextrose/Sodium Chloride 1,000 ml @ 125 mls/hr Q8H IV 09/01/17 21:45 10/01/17 07:29 09/03/17 03:46 Ibuprofen (Motrin) 800 mg Q6H PRN ORAL Moderate Pain (Pain Scale 4-6) 09/02/17 01:15 10/01/17 07:14 Non-Formulary Medication (Non-Formulary Med) 1 ea DAILY ORAL 09/02/17 09:00 10/02/17 08:59 UNV Ondansetron HCl (Zofran) 4 mg Q6H PRN IVP Nausea & Vomiting 09/02/17 01:15 10/01/17 07:14 Promethazine HCl/ Codeine (Phenergan with Codeine) 5 ml Q4H PRN ORAL For Cough 09/01/17 22:45 10/01/17 14:44 Sumatriptan Succinate (Imitrex) 100 mg DAILYPRN PRN ORAL for migraine 09/02/17 07:15 10/01/17 07:14 09/02/17 21:27 Trazodone HCl (Desyrel) 100 mg BEDTIME ORAL 09/02/17 21:00 10/01/17 20:59 09/02/17 20:31 Vancomycin HCl (Vanco rx to dose) 1 ea DAILY PRN MISC Per rx protocol 09/02/17 09:00 10/01/17 07:14 Vancomycin HCl 1 gm/Sodium Chloride 275 ml @ 183.708 mls/hr Q12HR@0500,1700 IVPB 09/03/17 05:00 09/08/17 04:59 09/03/17 05:10 AMY FERRARI Sep 03, 2017 11:14
[2017-09-03 12:00] VITALS: BP 140/65
--- NOTE | 2017-09-03 12:09 | Pulmonology Progress Note ---
Assessment/Plan Problems: (1) Bacteremia (2) Pulmonary edema (3) Leukocytosis (4) Depression (5) Heroin overdose Assessment/Plan iv abx check cultures ID evaluation done check labs repeat cultures Subjective ROS Limited/Unobtainable: No Constitutional: Reports: no symptoms HEENT: Repors: no symptoms Respiratory: Reports: no symptoms Cardiovascular: Reports: no symptoms Allergies: Coded Allergies: AMOXICILLIN (Verified Allergy, Unknown, 08/31/17) PENICILLINS (Verified Allergy, Unknown, 08/31/17) Objective Last 24 Hour Vital Signs Date Time Temp Pulse Resp B/P (MAP) Pulse Ox O2 Delivery O2 Flow Rate FiO2 09/03/17 04:00 97.5 66 18 106/60 98 Room Air 09/03/17 00:16 97.5 62 19 112/70 97 Room Air 09/02/17 20:00 97.7 71 18 125/85 98 Room Air 09/02/17 16:00 97.4 68 16 116/75 98 Room Air General Appearance: WD/WN HEENT: normocephalic, atraumatic Respiratory/Chest: chest wall non-tender, lungs clear Breasts: no masses Cardiovascular: normal rate Abdomen: normal bowel sounds Genitourinary: normal external genitalia Skin: no rash 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 Complete 09/01/17 04:20 Rectum VRE Culture - Final NO VANCOMYCIN RESISTANT ENTEROCOCCUS ... Complete Laboratory Tests 09/02/17 15:30: Vancomycin Level Trough 6.0 09/03/17 05:35: White Blood Count 5.4, Red Blood Count 3.74L, Hemoglobin 12.4, Hematocrit 36.1L , Mean Corpuscular Volume 96, Mean Corpuscular Hemoglobin 33.3H, Mean Corpuscular Hemoglobin Concent 34.5, Red Cell Distribution Width 10.8L, Platelet Count 171, Mean Platelet Volume 9.7, Neutrophils (%) (Auto) 43.0L, Lymphocytes (%) (Auto) 41.2, Monocytes (%) (Auto) 9.6, Eosinophils (%) (Auto) 4.7H, Basophils (%) (Auto) 1.4, Sodium Level 142, Potassium Level 3.5, Chloride Level 105, Carbon Dioxide Level 25, Anion Gap 12, Blood Urea Nitrogen 10, Creatinine 0.8, Estimat Glomerular Filtration Rate > 60, Glucose Level 88, Calcium Level 8.7, HIV (1&2) Antibody Rapid Negative Current Medications Medications (Trade) Dose Ordered Sig/Madhavi Route PRN Reason Start Time Stop Time Status Last Admin Dose Admin Acetaminophen (Tylenol) 650 mg Q6H PRN ORAL Mild Pain/Temp > 100.5 09/02/17 01:15 10/01/17 07:14 Dextrose/Sodium Chloride 1,000 ml @ 125 mls/hr Q8H IV 09/01/17 21:45 10/01/17 07:29 09/03/17 03:46 Ibuprofen (Motrin) 800 mg Q6H PRN ORAL Moderate Pain (Pain Scale 4-6) 09/02/17 01:15 10/01/17 07:14 Non-Formulary Medication (Non-Formulary Med) 1 ea DAILY ORAL 09/02/17 09:00 10/02/17 08:59 UNV Ondansetron HCl (Zofran) 4 mg Q6H PRN IVP Nausea & Vomiting 09/02/17 01:15 10/01/17 07:14 Promethazine HCl/ Codeine (Phenergan with Codeine) 5 ml Q4H PRN ORAL For Cough 09/01/17 22:45 10/01/17 14:44 Sumatriptan Succinate (Imitrex) 100 mg DAILYPRN PRN ORAL for migraine 09/02/17 07:15 10/01/17 07:14 09/02/17 21:27 Trazodone HCl (Desyrel) 100 mg BEDTIME ORAL 09/02/17 21:00 10/01/17 20:59 09/02/17 20:31 Vancomycin HCl (Vanco rx to dose) 1 ea DAILY PRN MISC Per rx protocol 09/02/17 09:00 10/01/17 07:14 Vancomycin HCl 1 gm/Sodium Chloride 275 ml @ 183.708 mls/hr Q12HR@0500,1700 IVPB 09/03/17 05:00 09/08/17 04:59 09/03/17 05:10 AYUSH DESAI Sep 03, 2017 12:09
--- NOTE | 2017-09-03 14:44 | Internal Med Progress Note ---
Subjective Date of Service: Sep 03, 2017 Physician Name Nnamdi Parrish Attending Physician Nnamdi Downey MD Current Medications Medications (Trade) Dose Ordered Sig/Madhavi Route PRN Reason Start Time Stop Time Status Last Admin Dose Admin Acetaminophen (Tylenol) 650 mg Q6H PRN ORAL Mild Pain/Temp > 100.5 09/02/17 01:15 10/01/17 07:14 Dextrose/Sodium Chloride 1,000 ml @ 125 mls/hr Q8H IV 09/01/17 21:45 10/01/17 07:29 09/03/17 13:03 Ibuprofen (Motrin) 800 mg Q6H PRN ORAL Moderate Pain (Pain Scale 4-6) 09/02/17 01:15 10/01/17 07:14 09/03/17 13:02 Non-Formulary Medication (Non-Formulary Med) 1 ea DAILY ORAL 09/02/17 09:00 10/02/17 08:59 UNV Ondansetron HCl (Zofran) 4 mg Q6H PRN IVP Nausea & Vomiting 09/02/17 01:15 10/01/17 07:14 Promethazine HCl/ Codeine (Phenergan with Codeine) 5 ml Q4H PRN ORAL For Cough 09/01/17 22:45 10/01/17 14:44 Sumatriptan Succinate (Imitrex) 100 mg DAILYPRN PRN ORAL for migraine 09/02/17 07:15 10/01/17 07:14 09/02/17 21:27 Trazodone HCl (Desyrel) 100 mg BEDTIME ORAL 09/02/17 21:00 10/01/17 20:59 09/02/17 20:31 Vancomycin HCl (Vanco rx to dose) 1 ea DAILY PRN MISC Per rx protocol 09/02/17 09:00 10/01/17 07:14 Vancomycin HCl 1 gm/Sodium Chloride 275 ml @ 183.708 mls/hr Q12HR@0500,1700 IVPB 09/03/17 05:00 09/08/17 04:59 09/03/17 05:10 Allergies: Coded Allergies: AMOXICILLIN (Verified Allergy, Unknown, 08/31/17) PENICILLINS (Verified Allergy, Unknown, 08/31/17) ROS Limited/Unobtainable: No Constitutional: Reports: no symptoms HEENT: Reports: other - headahe Cardiovascular: Reports: no symptoms Respiratory: Reports: no symptoms Gastrointestinal/Abdominal: Reports: nausea Genitourinary: Reports: no symptoms Neurologic/Psychiatric: Reports: no symptoms Subjective 27 YO F admitted with respiratory failure and pneumonia. Cover for Int Patrick-Dr Downey. C/O nausea and headache Objective Last Vital Signs Date Time Temp Pulse Resp B/P (MAP) Pulse Ox O2 Delivery O2 Flow Rate FiO2 09/03/17 12:00 97.8 74 20 140/65 100 Room Air 09/01/17 08:43 50 09/01/17 04:25 12.0 Laboratory Tests Test 09/02/17 15:30 09/03/17 05:35 Vancomycin Level Trough 6.0 ug/mL (5.0-12.0) White Blood Count 5.4 K/UL (4.8-10.8) Red Blood Count 3.74 M/UL (4.20-5.40) L Hemoglobin 12.4 G/DL (12.0-16.0) Hematocrit 36.1 % (37.0-47.0) L Mean Corpuscular Volume 96 FL (80-99) Mean Corpuscular Hemoglobin 33.3 PG (27.0-31.0) H Mean Corpuscular Hemoglobin Concent 34.5 G/DL (32.0-36.0) Red Cell Distribution Width 10.8 % (11.6-14.8) L Platelet Count 171 K/UL (150-450) Mean Platelet Volume 9.7 FL (6.5-10.1) Neutrophils (%) (Auto) 43.0 % (45.0-75.0) L Lymphocytes (%) (Auto) 41.2 % (20.0-45.0) Monocytes (%) (Auto) 9.6 % (1.0-10.0) Eosinophils (%) (Auto) 4.7 % (0.0-3.0) H Basophils (%) (Auto) 1.4 % (0.0-2.0) Sodium Level 142 mEQ/L (135-145) Potassium Level 3.5 mEQ/L (3.4-4.9) Chloride Level 105 mEQ/L (98-107) Carbon Dioxide Level 25 mEQ/L (20-30) Anion Gap 12 (5-15) Blood Urea Nitrogen 10 mg/dL (7-23) Creatinine 0.8 mg/dL (0.5-0.9) Estimat Glomerular Filtration Rate > 60 mL/min (>60) Glucose Level 88 mg/dL (74-106) Calcium Level 8.7 mg/dL (8.6-10.2) HIV (1&2) Antibody Rapid Negative (NEGATIVE) Microbiology Date/Time Source Procedure Growth Status 09/01/17 01:25 Blood Blood Culture - Preliminary Resulted 09/01/17 01:10 Blood Blood Culture - Preliminary NO GROWTH AFTER 48 HOURS Resulted 09/01/17 04:20 Nasal Nares MRSA Culture - Final NO METHICILLIN RESISTANT STAPH AUREUS... Complete 09/01/17 04:20 Rectum VRE Culture - Final NO VANCOMYCIN RESISTANT ENTEROCOCCUS ... 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
[2017-09-03] MEDS: SUMAtriptan 100mg tab ORAL PRN (15:08)
[2017-09-03] MEDS ORDERED: D5 1/2NS 1000ml IV ONE ×2 (15:43)
[2017-09-03 16:00] VITALS: BP 118/78
[2017-09-03] MEDS ORDERED: Milk of Magnesia 30ml Ud ORAL PRN (16:30)
[2017-09-03] MEDS: Docusate 100mg cap ORAL SCH (17:00)
[2017-09-03 20:00] VITALS: BP 109/66
[2017-09-03] MEDS: TraZODone 100mg tab ORAL SCH (20:25)
[2017-09-04 04:00] VITALS: BP 103/57
[2017-09-04] MEDS: Vancomycin 1 GM in NS 275 ML IVPB SCH ×2 (04:06→16:28)
[2017-09-04] MEDS: D5 1/2NS 1,000 ML IV SCH ×3 (05:33→21:45)
[2017-09-04 08:00] VITALS: BP 95/61
[2017-09-04] MEDS: Docusate 100mg cap ORAL SCH ×2 (08:30→17:28)
--- NOTE | 2017-09-04 08:30 | Cardiology Report ---
APPROVED REPORT EXAM: Two-dimensional and M-mode echocardiogram with Doppler and color Doppler. INDICATION Left ventricular function M-Mode DIMENSIONS IVSd0.7 (0.7-1.1cm)Left Atrium (MM)3.0 (1.6-4.0cm) LVDd4.6 (3.5-5.6cm)Aortic Root2.3 (2.0-3.7cm) PWd0.9 (0.7-1.1cm)Aortic Cusp Exc.1.8 (1.5-2.0cm) LVDs3.2 (2.5-4.0cm) PWs1.2 cm Normal left ventricular chamber size, systolic function and wall motion. Left ventricular ejection fraction estimated to be 55 %. No evidence of left ventricular hypertrophy. No evidence of pericardial effusion. All other cardiac chamber sizes are within normal limits. Normal appearing aortic, mitral, pulmonic and tricuspid valves. IVC dilated at 2.0 cm with physiologic collapse. A color flow and spectral Doppler study was performed and revealed: No aortic regurgitation. Trace mitral regurgitation. Mitral inflow indicate normal left ventricular diastolic function. Mild tricuspid regurgitation. Tricuspid systolic velocities suggests peak right ventricular systolic pressure of 30 mmHg. No pulmonic regurgitation present.
[2017-09-04 09:11] LABS: ALANINE AMINOTRANSFERASE 19 U/L (12-78); ANION GAP 8 (5-15); ASPARTATE AMINO TRANSFERASE 20 U/L (15-37); CALCIUM 7.7 MG/DL (8.5-10.1); CARBON DIOXIDE 25 MMOL/L (21-32); CHLORIDE 104 MMOL/L (98-107); CREATININE 0.9 MG/DL (0.55-1.30); GLOMERULAR FILTRATION RATE > 60 mL/min (>60); MAGNESIUM 1.7 MG/DL (1.8-2.4); PHOSPHORUS 4.2 MG/DL (2.5-4.9); POTASSIUM 3.3 MMOL/L (3.5-5.1); SODIUM 137 MMOL/L (136-145); TOTAL PROTEIN 5.7 G/DL (6.4-8.2)
[2017-09-04 09:14] LABS: CRP QUANT < 0.2 mg/dL (0.00-0.90)
[2017-09-04 09:20] LABS: MEAN CORPUSCULAR HEMOGLOBIN 33.7 PG (27.0-31.0); MEAN CORPUSCULAR HGB CONC 35.7 G/DL (32.0-36.0); MEAN CORPUSCULAR VOLUME 94 FL (80-99); RED BLOOD COUNT 3.66 M/UL (4.20-5.40); RED CELL DISTRIBUTION WIDTH 10.6 % (11.6-14.8)
[2017-09-04 09:21] LABS: MEAN PLATELET VOLUME 10.8 FL (6.5-10.1); PLATELET COUNT 179 K/UL (150-450); WHITE BLOOD COUNT 6.2 K/UL (4.8-10.8)
[2017-09-04 09:22] LABS: BASOPHILS % (AUTO) 1.9 % (0.0-2.0); EOSINOPHILS % (AUTO) 5.5 % (0.0-3.0); LYMPHOCYTES % (AUTO) 38.6 % (20.0-45.0); MONOCYTES % (AUTO) 8.2 % (1.0-10.0); NEUTROPHILS % (AUTO) 45.8 % (45.0-75.0)
[2017-09-04 11:02] LABS: ERYTHROCYTE SEDIMENTATION RATE 8 MM/HR (0-20)
--- NOTE | 2017-09-04 11:41 | Internal Med Progress Note ---
Subjective Date of Service: Sep 04, 2017 Physician Name oLrenNnamdi Attending Physician Nnamdi Downey MD Current Medications Medications (Trade) Dose Ordered Sig/Madhavi Route PRN Reason Start Time Stop Time Status Last Admin Dose Admin Acetaminophen (Tylenol) 650 mg Q6H PRN ORAL Mild Pain/Temp > 100.5 09/02/17 01:15 10/01/17 07:14 Dextrose/Sodium Chloride 1,000 ml @ 125 mls/hr Q8H IV 09/01/17 21:45 10/01/17 07:29 09/04/17 05:33 Docusate Sodium (Colace) 100 mg TWICE A DAY ORAL 09/03/17 18:00 10/03/17 17:59 09/04/17 08:30 Ibuprofen (Motrin) 800 mg Q6H PRN ORAL Moderate Pain (Pain Scale 4-6) 09/02/17 01:15 10/01/17 07:14 09/03/17 13:02 Magnesium Hydroxide (Mom) 30 ml DAILYPRN PRN ORAL Constipation 09/03/17 16:30 10/03/17 16:29 09/03/17 16:51 Non-Formulary Medication (Non-Formulary Med) 1 ea DAILY ORAL 09/02/17 09:00 10/02/17 08:59 UNV Ondansetron HCl (Zofran) 4 mg Q6H PRN IVP Nausea & Vomiting 09/02/17 01:15 10/01/17 07:14 09/03/17 15:08 Promethazine HCl/ Codeine (Phenergan with Codeine) 5 ml Q4H PRN ORAL For Cough 09/01/17 22:45 10/01/17 14:44 Sumatriptan Succinate (Imitrex) 100 mg DAILYPRN PRN ORAL for migraine 09/02/17 07:15 10/01/17 07:14 09/03/17 15:08 Trazodone HCl (Desyrel) 100 mg BEDTIME ORAL 09/02/17 21:00 10/01/17 20:59 09/03/17 20:25 Vancomycin HCl (Vanco rx to dose) 1 ea DAILY PRN MISC Per rx protocol 09/02/17 09:00 10/01/17 07:14 Vancomycin HCl 1 gm/Sodium Chloride 275 ml @ 183.708 mls/hr Q12HR@0500,1700 IVPB 09/03/17 05:00 09/08/17 04:59 09/04/17 04:06 Allergies: Coded Allergies: AMOXICILLIN (Verified Allergy, Unknown, 08/31/17) PENICILLINS (Verified Allergy, Unknown, 08/31/17) ROS Limited/Unobtainable: No Constitutional: Reports: no symptoms HEENT: Reports: other - headache Respiratory: Reports: no symptoms Gastrointestinal/Abdominal: Reports: nausea Genitourinary: Reports: no symptoms Neurologic/Psychiatric: Reports: no symptoms Subjective 27 YO F admitted with respiratory failure and pneumonia. Cover for Int Med-Dr Downey. C/O nausea and headache. Await placement in sober living Objective Last Vital Signs Date Time Temp Pulse Resp B/P (MAP) Pulse Ox O2 Delivery O2 Flow Rate FiO2 09/04/17 08:00 97.0 62 16 95/61 97 Room Air 09/01/17 08:43 50 09/01/17 04:25 12.0 Laboratory Tests Test 09/04/17 07:25 White Blood Count 6.2 K/UL (4.8-10.8) Red Blood Count 3.66 M/UL (4.20-5.40) L Hemoglobin 12.3 G/DL (12.0-16.0) Hematocrit 34.5 % (37.0-47.0) L Mean Corpuscular Volume 94 FL (80-99) Mean Corpuscular Hemoglobin 33.7 PG (27.0-31.0) H Mean Corpuscular Hemoglobin Concent 35.7 G/DL (32.0-36.0) Red Cell Distribution Width 10.6 % (11.6-14.8) L Platelet Count 179 K/UL (150-450) Mean Platelet Volume 10.8 FL (6.5-10.1) H Neutrophils (%) (Auto) 45.8 % (45.0-75.0) Lymphocytes (%) (Auto) 38.6 % (20.0-45.0) Monocytes (%) (Auto) 8.2 % (1.0-10.0) Eosinophils (%) (Auto) 5.5 % (0.0-3.0) H Basophils (%) (Auto) 1.9 % (0.0-2.0) Erythrocyte Sedimentation Rate 8 MM/HR (0-20) Sodium Level 137 MMOL/L (136-145) Potassium Level 3.3 MMOL/L (3.5-5.1) L Chloride Level 104 MMOL/L (98-107) Carbon Dioxide Level 25 MMOL/L (21-32) Anion Gap 8 (5-15) Blood Urea Nitrogen 11 mg/dL (7-18) Creatinine 0.9 MG/DL (0.55-1.30) Estimat Glomerular Filtration Rate > 60 mL/min (>60) Glucose Level 97 MG/DL (74-106) Calcium Level 7.7 MG/DL (8.5-10.1) L Phosphorus Level 4.2 MG/DL (2.5-4.9) Magnesium Level 1.7 MG/DL (1.8-2.4) L Total Bilirubin 0.3 MG/DL (0.2-1.0) Aspartate Amino Transf (AST/SGOT) 20 U/L (15-37) Alanine Aminotransferase (ALT/SGPT) 19 U/L (12-78) Alkaline Phosphatase 67 U/L (46-116) C-Reactive Protein, Quantitative < 0.2 mg/dL (0.00-0.90) Total Protein 5.7 G/DL (6.4-8.2) L Albumin 2.9 G/DL (3.4-5.0) L Globulin 2.8 g/dL Albumin/Globulin Ratio 1.0 (1.0-2.7) Objective General Appearance: WD/WN, alert, mild distress EENT: PERRL/EOMI, normal ENT inspection, TMs normal Neck: non-tender, normal alignment, supple Cardiovascular: normal peripheral pulses, normal rate, regular rhythm, no gallop/murmur, no JVD Respiratory/Chest: respiratory distress, decreased breath sounds, crackles/ rales, expiratory wheezing Abdomen: normal bowel sounds, non tender, soft, no organomegaly, no mass Extremities: normal range of motion 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
[2017-09-04 12:00] VITALS: BP 103/68
[2017-09-04] MEDS: SUMAtriptan 100mg tab ORAL PRN ×2 (12:12→16:29)
--- NOTE | 2017-09-04 14:30 | Consultation ---
DATE OF CONSULTATION: 09/03/2017 INFECTIOUS DISEASE CONSULTATION This consult is for coverage of Dr. Ku. PRIMARY ATTENDING: Nnamdi Downey M.D. REASON FOR CONSULT: Positive blood culture bacteremia. HISTORY OF PRESENT ILLNESS: This 27-year-old white female, admitted on 09/01/2017 because of altered mental status. The patient has history of substance abuse and had depression. She had been sober for past five months. On the day of admission, she injected heroin. She was found to be unresponsive. She had decrease in O2 saturation. She received Narcan at the field. Initially, she has pulmonary infiltrates that resolved in the next day chest x-ray. She also has leukocytosis. Blood culture coming back positive for Gram-positive cocci. PAST MEDICAL HISTORY: Depression, substance abuse, and migraine headache. MEDICATIONS: Vancomycin, trazodone, Imitrex, Tylenol, ibuprofen, Phenergan With Codeine, and Zofran. ALLERGIES: Allergic to amoxicillin, penicillin, developed hives. SOCIAL HISTORY: She lives in rehab. Smoking three to four cigarettes a day. History of substance abuse as mentioned. She is single, has no child. REVIEW OF SYSTEMS: Dry cough. No fever. No chills. No nausea. No vomiting. No diarrhea. PHYSICAL EXAMINATION: GENERAL APPEARANCE: No acute distress. VITAL SIGNS: Temperature is 97.5 degrees, pulse 66, and blood pressure 106/60. HEAD AND NECK: She uses glasses. Slightly whitish tongue. HEART: S1 and S2 regular. LUNGS: Clear. ABDOMEN: Soft and nontender. EXTREMITIES: No edema. LABORATORY AND DIAGNOSTIC DATA: WBC is 5.4, hemoglobin 12.4, hematocrit 36.1, and platelets is 171,000. Sodium 142, potassium 3.5, chloride 105, bicarbonate 25, BUN 10, creatinine 0.8, and glucose 88. HIV test is negative. Chest x-ray at the time of admission showed pulmonary edema versus infiltrate. The next day chest x-ray was negative with resolution of the edema. MRSA screen was negative. Blood culture x1, Gram-positive cocci. VRE screen was negative. IMPRESSION: 1. Bacteremia. We try to rule out sepsis versus contamination. The patient has pulmonary edema likely aspiration pneumonitis. 2. Heroin poisoning. 3. Penicillin allergy. 4. Depression. RECOMMENDATION: We will continue with IV vancomycin. We will follow up the cultures. At the end of my exam, I thank Dr. Downey, for involving me in the care of this patient. Gerald Gamble M.D. DR: Lolis JOB#: [id number] CC:
--- NOTE | 2017-09-04 14:41 | Infectious Diseases Prog Note ---
Assessment/Plan Assessment/Plan IMPRESSION: #1/4 CoNS Bacteremia.- suspect contamination, however since patient is IVDA, CoNS could be a real pathogen and cause endocarditis, will obtain repeat Bcx #Pulmonary edema upon admission, resolved on repeat CXR #Leukocytosis (up to 23), down to 7 the next day- likely reactive or lab spurr # Heroin poisoning. -hiv ag/ab neg #. Penicillin allergy. #. Depression. RECOMMENDATION: -We will continue with IV vancomycin #3 for now awaiting repeat Bcx -2 sets of bcx -if persistently + Bcx, then check 2d Echo, +/- [place] -monitor CBC/BMP, temperatures -Aspiration precautions Discussd with RN. Subjective Allergies: Coded Allergies: AMOXICILLIN (Verified Allergy, Unknown, 08/31/17) PENICILLINS (Verified Allergy, Unknown, 08/31/17) Subjective c/o of migraine headahce afebrile no leukocytosis Objective Vital Signs Last 24 Hour Vital Signs Date Time Temp Pulse Resp B/P (MAP) Pulse Ox O2 Delivery O2 Flow Rate FiO2 09/04/17 12:00 97.8 62 17 103/68 97 Room Air 09/04/17 08:00 97.0 62 16 95/61 97 Room Air 09/04/17 04:00 97.7 69 16 103/57 94 Room Air 09/03/17 20:00 98.0 69 18 109/66 98 Room Air 09/03/17 16:00 98.1 68 18 118/78 97 Room Air Height (Feet): 5 Height (Inches): 3.00 Weight (Pounds): 135 Objective GENERAL APPEARANCE: No acute distress.. HEAD AND NECK: PERRL, no oral lesions HEART: S1 and S2 regular. LUNGS: Clear. ABDOMEN: Soft and nontender. EXTREMITIES: No edema. no cellulitis Laboratory Tests Test 09/04/17 07:25 White Blood Count 6.2 K/UL (4.8-10.8) Red Blood Count 3.66 M/UL (4.20-5.40) L Hemoglobin 12.3 G/DL (12.0-16.0) Hematocrit 34.5 % (37.0-47.0) L Mean Corpuscular Volume 94 FL (80-99) Mean Corpuscular Hemoglobin 33.7 PG (27.0-31.0) H Mean Corpuscular Hemoglobin Concent 35.7 G/DL (32.0-36.0) Red Cell Distribution Width 10.6 % (11.6-14.8) L Platelet Count 179 K/UL (150-450) Mean Platelet Volume 10.8 FL (6.5-10.1) H Neutrophils (%) (Auto) 45.8 % (45.0-75.0) Lymphocytes (%) (Auto) 38.6 % (20.0-45.0) Monocytes (%) (Auto) 8.2 % (1.0-10.0) Eosinophils (%) (Auto) 5.5 % (0.0-3.0) H Basophils (%) (Auto) 1.9 % (0.0-2.0) Erythrocyte Sedimentation Rate 8 MM/HR (0-20) Sodium Level 137 MMOL/L (136-145) Potassium Level 3.3 MMOL/L (3.5-5.1) L Chloride Level 104 MMOL/L (98-107) Carbon Dioxide Level 25 MMOL/L (21-32) Anion Gap 8 (5-15) Blood Urea Nitrogen 11 mg/dL (7-18) Creatinine 0.9 MG/DL (0.55-1.30) Estimat Glomerular Filtration Rate > 60 mL/min (>60) Glucose Level 97 MG/DL (74-106) Calcium Level 7.7 MG/DL (8.5-10.1) L Phosphorus Level 4.2 MG/DL (2.5-4.9) Magnesium Level 1.7 MG/DL (1.8-2.4) L Total Bilirubin 0.3 MG/DL (0.2-1.0) Aspartate Amino Transf (AST/SGOT) 20 U/L (15-37) Alanine Aminotransferase (ALT/SGPT) 19 U/L (12-78) Alkaline Phosphatase 67 U/L (46-116) C-Reactive Protein, Quantitative < 0.2 mg/dL (0.00-0.90) Total Protein 5.7 G/DL (6.4-8.2) L Albumin 2.9 G/DL (3.4-5.0) L Globulin 2.8 g/dL Albumin/Globulin Ratio 1.0 (1.0-2.7) Current Medications Medications (Trade) Dose Ordered Sig/Madhavi Route PRN Reason Start Time Stop Time Status Last Admin Dose Admin Acetaminophen (Tylenol) 650 mg Q6H PRN ORAL Mild Pain/Temp > 100.5 09/02/17 01:15 10/01/17 07:14 Dextrose/Sodium Chloride 1,000 ml @ 125 mls/hr Q8H IV 09/01/17 21:45 10/01/17 07:29 09/04/17 13:56 Docusate Sodium (Colace) 100 mg TWICE A DAY ORAL 09/03/17 18:00 10/03/17 17:59 09/04/17 08:30 Ibuprofen (Motrin) 800 mg Q6H PRN ORAL Moderate Pain (Pain Scale 4-6) 09/02/17 01:15 10/01/17 07:14 09/03/17 13:02 Magnesium Hydroxide (Mom) 30 ml DAILYPRN PRN ORAL Constipation 09/03/17 16:30 10/03/17 16:29 09/03/17 16:51 Non-Formulary Medication (Non-Formulary Med) 1 ea DAILY ORAL 09/02/17 09:00 10/02/17 08:59 UNV Ondansetron HCl (Zofran) 4 mg Q6H PRN IVP Nausea & Vomiting 09/02/17 01:15 10/01/17 07:14 09/03/17 15:08 Promethazine HCl/ Codeine (Phenergan with Codeine) 5 ml Q4H PRN ORAL For Cough 09/01/17 22:45 10/01/17 14:44 Sumatriptan Succinate (Imitrex) 100 mg DAILYPRN PRN ORAL for migraine 09/02/17 07:15 10/01/17 07:14 09/04/17 12:12 Trazodone HCl (Desyrel) 100 mg BEDTIME ORAL 09/02/17 21:00 10/01/17 20:59 09/03/17 20:25 Vancomycin HCl (Vanco rx to dose) 1 ea DAILY PRN MISC Per rx protocol 09/02/17 09:00 10/01/17 07:14 Vancomycin HCl 1 gm/Sodium Chloride 275 ml @ 183.708 mls/hr Q12HR@0500,1700 IVPB 09/03/17 05:00 09/08/17 04:59 09/04/17 04:[address] M.D. Sep 04, 2017 14:41
--- NOTE | 2017-09-04 15:15 | Pulmonology Progress Note ---
Assessment/Plan Problems: (1) Bacteremia (2) Pulmonary edema (3) Leukocytosis (4) Depression (5) Heroin overdose Assessment/Plan iv abx check cultures ID evaluation done check labs repeat cultures bc is GPC,coag negative, most likely contaminated. dc if repeat cultures are negative Subjective ROS Limited/Unobtainable: No Constitutional: Reports: no symptoms HEENT: Repors: no symptoms Respiratory: Reports: no symptoms Allergies: Coded Allergies: AMOXICILLIN (Verified Allergy, Unknown, 08/31/17) PENICILLINS (Verified Allergy, Unknown, 08/31/17) Objective Last 24 Hour Vital Signs Date Time Temp Pulse Resp B/P (MAP) Pulse Ox O2 Delivery O2 Flow Rate FiO2 09/04/17 12:00 97.8 62 17 103/68 97 Room Air 09/04/17 08:00 97.0 62 16 95/61 97 Room Air 09/04/17 04:00 97.7 69 16 103/57 94 Room Air 09/03/17 20:00 98.0 69 18 109/66 98 Room Air 09/03/17 16:00 98.1 68 18 118/78 97 Room Air Intake and Output 09/04/17 09/05/17 19:00 07:00 Intake Total 1100 ml Balance 1100 ml Intake Oral 350 ml IV Total 750 ml # Voids 1 General Appearance: WD/WN HEENT: normocephalic Respiratory/Chest: chest wall non-tender, normal breath sounds Breasts: no masses Cardiovascular: normal peripheral pulses Abdomen: normal bowel sounds, soft, non tender Genitourinary: normal external genitalia Extremities: no clubbing 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 Laboratory Tests 09/04/17 07:25: White Blood Count 6.2, Red Blood Count 3.66L, Hemoglobin 12.3, Hematocrit 34.5L , Mean Corpuscular Volume 94, Mean Corpuscular Hemoglobin 33.7H, Mean Corpuscular Hemoglobin Concent 35.7, Red Cell Distribution Width 10.6L, Platelet Count 179, Mean Platelet Volume 10.8H, Neutrophils (%) (Auto) 45.8, Lymphocytes (%) (Auto) 38.6, Monocytes (%) (Auto) 8.2, Eosinophils (%) (Auto) 5.5H, Basophils (%) (Auto) 1.9, Erythrocyte Sedimentation Rate 8, Sodium Level 137, Potassium Level 3.3L, Chloride Level 104, Carbon Dioxide Level 25, Anion Gap 8, Blood Urea Nitrogen 11, Creatinine 0.9, Estimat Glomerular Filtration Rate > 60, Glucose Level 97, Calcium Level 7.7L, Phosphorus Level 4.2, Magnesium Level 1.7L, Total Bilirubin 0.3, Aspartate Amino Transf (AST/SGOT) 20 , Alanine Aminotransferase (ALT/SGPT) 19, Alkaline Phosphatase 67, C-Reactive Protein, Quantitative < 0.2, Total Protein 5.7L, Albumin 2.9L, Globulin 2.8, Albumin/Globulin Ratio 1.0 Current Medications Medications (Trade) Dose Ordered Sig/Madhavi Route PRN Reason Start Time Stop Time Status Last Admin Dose Admin Acetaminophen (Tylenol) 650 mg Q6H PRN ORAL Mild Pain/Temp > 100.5 09/02/17 01:15 10/01/17 07:14 Dextrose/Sodium Chloride 1,000 ml @ 125 mls/hr Q8H IV 09/01/17 21:45 10/01/17 07:29 09/04/17 13:56 Docusate Sodium (Colace) 100 mg TWICE A DAY ORAL 09/03/17 18:00 10/03/17 17:59 09/04/17 08:30 Ibuprofen (Motrin) 800 mg Q6H PRN ORAL Moderate Pain (Pain Scale 4-6) 09/02/17 01:15 10/01/17 07:14 09/03/17 13:02 Magnesium Hydroxide (Mom) 30 ml DAILYPRN PRN ORAL Constipation 09/03/17 16:30 10/03/17 16:29 09/03/17 16:51 Non-Formulary Medication (Non-Formulary Med) 1 ea DAILY ORAL 09/02/17 09:00 10/02/17 08:59 UNV Ondansetron HCl (Zofran) 4 mg Q6H PRN IVP Nausea & Vomiting 09/02/17 01:15 10/01/17 07:14 09/03/17 15:08 Promethazine HCl/ Codeine (Phenergan with Codeine) 5 ml Q4H PRN ORAL For Cough 09/01/17 22:45 10/01/17 14:44 Sumatriptan Succinate (Imitrex) 100 mg DAILYPRN PRN ORAL for migraine 09/02/17 07:15 10/01/17 07:14 09/04/17 12:12 Trazodone HCl (Desyrel) 100 mg BEDTIME ORAL 09/02/17 21:00 10/01/17 20:59 09/03/17 20:25 Vancomycin HCl (Vanco rx to dose) 1 ea DAILY PRN MISC Per rx protocol 09/02/17 09:00 10/01/17 07:14 Vancomycin HCl 1 gm/Sodium Chloride 275 ml @ 183.708 mls/hr Q12HR@0500,1700 IVPB 09/03/17 05:00 09/08/17 04:59 09/04/17 04:06 AYUSH DESAI Sep 04, 2017 15:15
[2017-09-04 16:00] VITALS: BP 126/81
[2017-09-04] MEDS ORDERED: SUMAtriptan 6mg/0.5ml Inj SUBQ PRN (16:00)
[2017-09-04 20:45] VITALS: BP 122/76
[2017-09-04] MEDS: TraZODone 100mg tab ORAL SCH (20:52)
[2017-09-05 00:54] VITALS: BP 119/68
[2017-09-05 04:00] VITALS: BP 106/67
[2017-09-05] MEDS: D5 1/2NS 1,000 ML IV SCH ×2 (04:40→13:46)
[2017-09-05 08:00] VITALS: BP 108/68
[2017-09-05] MEDS ORDERED: Vancomycin 1.25 GM in NS 275 ML IVPB SCH (08:00)
[2017-09-05] MEDS: Docusate 100mg cap ORAL SCH (09:25)
[2017-09-05] MEDS: Vancomycin 1250mg/D5W 250ml IVPB SCH ×2 (09:25→16:00)
[2017-09-05 12:00] VITALS: BP 117/80
[2017-09-05 16:00] VITALS: BP 122/82
--- NOTE | 2017-09-05 16:57 | Infectious Diseases Prog Note ---
Assessment/Plan Assessment/Plan IMPRESSION: #1/4 CoNS Bacteremia.- suspect contamination, Echo neg, repeat Bcx NTD, afebrile -Repeat Bcx 09/04 NTD -TTE: no vegetations or significant abnormal valves seen #Pulmonary edema upon admission, resolved on repeat CXR #Leukocytosis (up to 23), down to 7 the next day- likely reactive or lab spurr # Heroin poisoning. -hiv ag/ab neg #. Penicillin allergy. #. Depression. RECOMMENDATION: -D/C IV Vancomcyin #4 as likely contaminant in bcx -Ok to discharge to facility off abx -f/u final repeat Bcx -monitor CBC/BMP, temperatures -Aspiration precautions Discussd with RN and case briefer Subjective Allergies: Coded Allergies: AMOXICILLIN (Verified Allergy, Unknown, 08/31/17) PENICILLINS (Verified Allergy, Unknown, 08/31/17) Subjective afebrile no leukocytosis Bcx 09/04 NTD (per micro lab) Objective Vital Signs Last 24 Hour Vital Signs Date Time Temp Pulse Resp B/P (MAP) Pulse Ox O2 Delivery O2 Flow Rate FiO2 09/05/17 16:00 98.2 91 18 122/82 Room Air 09/05/17 12:00 97.9 84 18 117/80 97 Room Air 09/05/17 08:00 97.8 79 18 108/68 97 Room Air 09/05/17 04:00 98.0 79 18 106/67 98 Room Air 09/05/17 00:54 97.7 65 18 119/68 97 Room Air 09/04/17 20:45 97.5 70 19 122/76 97 Room Air Height (Feet): 5 Height (Inches): 3.00 Weight (Pounds): 135 Objective not done as already discharged Laboratory Tests Test 09/05/17 04:45 Vancomycin Level Trough 5.4 ug/mL (5.0-12.0) Current Medications Medications (Trade) Dose Ordered Sig/Madhavi Route PRN Reason Start Time Stop Time Status Last Admin Dose Admin Acetaminophen (Tylenol) 650 mg Q6H PRN ORAL Mild Pain/Temp > 100.5 09/02/17 01:15 10/01/17 07:14 Dextrose/Sodium Chloride 1,000 ml @ 125 mls/hr Q8H IV 09/01/17 21:45 10/01/17 07:29 09/05/17 13:46 Docusate Sodium (Colace) 100 mg TWICE A DAY ORAL 09/03/17 18:00 10/03/17 17:59 09/05/17 09:25 Ibuprofen (Motrin) 800 mg Q6H PRN ORAL Moderate Pain (Pain Scale 4-6) 09/02/17 01:15 10/01/17 07:14 09/05/17 09:40 Magnesium Hydroxide (Mom) 30 ml DAILYPRN PRN ORAL Constipation 09/03/17 16:30 10/03/17 16:29 09/03/17 16:51 Ondansetron HCl (Zofran) 4 mg Q6H PRN IVP Nausea & Vomiting 09/02/17 01:15 10/01/17 07:14 09/03/17 15:08 Promethazine HCl/ Codeine (Phenergan with Codeine) 5 ml Q4H PRN ORAL For Cough 09/01/17 22:45 10/01/17 14:44 Sumatriptan Succinate (Imitrex) 6 mg DAILY PRN SUBQ migrane 09/04/17 16:00 10/04/17 15:59 Sumatriptan Succinate (Imitrex) 100 mg DAILYPRN PRN ORAL for migraine 09/02/17 07:15 10/01/17 07:14 09/04/17 16:29 Trazodone HCl (Desyrel) 100 mg BEDTIME ORAL 09/02/17 21:00 10/01/17 20:59 09/04/17 20:52 Vancomycin HCl (Vanco rx to dose) 1 ea DAILY PRN MISC Per rx protocol 09/02/17 09:00 10/01/17 07:14 Vancomycin HCl/ Dextrose 250 ml @ 166.667 mls/hr Q12HR@0800,1600 IVPB 09/05/17 08:00 09/10/17 07:59 09/05/17 09:[address] M.D. Sep 05, 2017 16:57
--- NOTE | 2017-09-05 17:11 | Internal Med Progress Note ---
Subjective Date of Service: Sep 05, 2017 Physician Name Nnamdi Parrish Attending Physician Nnamdi Downey MD Current Medications Medications (Trade) Dose Ordered Sig/Madhavi Route PRN Reason Start Time Stop Time Status Last Admin Dose Admin Acetaminophen (Tylenol) 650 mg Q6H PRN ORAL Mild Pain/Temp > 100.5 09/02/17 01:15 10/01/17 07:14 Dextrose/Sodium Chloride 1,000 ml @ 125 mls/hr Q8H IV 09/01/17 21:45 10/01/17 07:29 09/05/17 13:46 Docusate Sodium (Colace) 100 mg TWICE A DAY ORAL 09/03/17 18:00 10/03/17 17:59 09/05/17 09:25 Ibuprofen (Motrin) 800 mg Q6H PRN ORAL Moderate Pain (Pain Scale 4-6) 09/02/17 01:15 10/01/17 07:14 09/05/17 09:40 Magnesium Hydroxide (Mom) 30 ml DAILYPRN PRN ORAL Constipation 09/03/17 16:30 10/03/17 16:29 09/03/17 16:51 Ondansetron HCl (Zofran) 4 mg Q6H PRN IVP Nausea & Vomiting 09/02/17 01:15 10/01/17 07:14 09/03/17 15:08 Promethazine HCl/ Codeine (Phenergan with Codeine) 5 ml Q4H PRN ORAL For Cough 09/01/17 22:45 10/01/17 14:44 Sumatriptan Succinate (Imitrex) 6 mg DAILY PRN SUBQ migrane 09/04/17 16:00 10/04/17 15:59 Sumatriptan Succinate (Imitrex) 100 mg DAILYPRN PRN ORAL for migraine 09/02/17 07:15 10/01/17 07:14 09/04/17 16:29 Trazodone HCl (Desyrel) 100 mg BEDTIME ORAL 09/02/17 21:00 10/01/17 20:59 09/04/17 20:52 Vancomycin HCl (Vanco rx to dose) 1 ea DAILY PRN MISC Per rx protocol 09/02/17 09:00 10/01/17 07:14 Vancomycin HCl/ Dextrose 250 ml @ 166.667 mls/hr Q12HR@0800,1600 IVPB 09/05/17 08:00 09/10/17 07:59 09/05/17 09:25 Allergies: Coded Allergies: AMOXICILLIN (Verified Allergy, Unknown, 08/31/17) PENICILLINS (Verified Allergy, Unknown, 08/31/17) ROS Limited/Unobtainable: No Constitutional: Reports: no symptoms HEENT: Reports: no symptoms Cardiovascular: Reports: no symptoms Respiratory: Reports: no symptoms Gastrointestinal/Abdominal: Reports: no symptoms Genitourinary: Reports: no symptoms Neurologic/Psychiatric: Reports: no symptoms Subjective 27 YO F admitted with respiratory failure and pneumonia. Cover for Int Patrick-Dr Downey. C/O nausea and headache. Await discharge to [facility] sober living. Objective Last Vital Signs Date Time Temp Pulse Resp B/P (MAP) Pulse Ox O2 Delivery O2 Flow Rate FiO2 09/05/17 16:00 98.2 91 18 122/82 Room Air 09/05/17 12:00 97 09/01/17 08:43 50 09/01/17 04:25 12.0 Laboratory Tests Test 09/05/17 04:45 Vancomycin Level Trough 5.4 ug/mL (5.0-12.0) Intake and Output 09/05/17 09/06/17 19:00 07:00 Intake Total 1355 ml Balance 1355 ml Intake Oral 480 ml IV Total 875 ml # Voids 2 Objective General Appearance: WD/WN, alert, mild distress EENT: PERRL/EOMI, normal ENT inspection, TMs normal Neck: non-tender, normal alignment, supple Cardiovascular: normal peripheral pulses, normal rate, regular rhythm, no gallop/murmur, no JVD Respiratory/Chest: respiratory distress, decreased breath sounds, crackles/ rales, expiratory wheezing Abdomen: normal bowel sounds, non tender, soft, no organomegaly, no mass Extremities: normal range of motion 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
[2017-09-05] MEDS ORDERED: Tubing IV Secondary IV ONE (17:28)
[2017-09-05] MEDS ORDERED: D5 1/2NS 1000ml IV ONE (17:28)
--- NOTE | 2017-09-05 18:07 | Pulmonology Progress Note ---
Assessment/Plan Problems: (1) Bacteremia (2) Pulmonary edema (3) Leukocytosis (4) Depression (5) Heroin overdose Assessment/Plan iv abx check cultures ID evaluation done check labs repeat cultures ok to g home if ok with ID Subjective ROS Limited/Unobtainable: No Constitutional: Reports: no symptoms HEENT: Repors: no symptoms Respiratory: Reports: no symptoms Allergies: Coded Allergies: AMOXICILLIN (Verified Allergy, Unknown, 08/31/17) PENICILLINS (Verified Allergy, Unknown, 08/31/17) Objective Last 24 Hour Vital Signs Date Time Temp Pulse Resp B/P (MAP) Pulse Ox O2 Delivery O2 Flow Rate FiO2 09/05/17 16:00 98.2 91 18 122/82 Room Air 09/05/17 12:00 97.9 84 18 117/80 97 Room Air 09/05/17 08:00 97.8 79 18 108/68 97 Room Air 09/05/17 04:00 98.0 79 18 106/67 98 Room Air 09/05/17 00:54 97.7 65 18 119/68 97 Room Air 09/04/17 20:45 97.5 70 19 122/76 97 Room Air Intake and Output 09/05/17 09/06/17 19:00 07:00 Intake Total 1355 ml Balance 1355 ml Intake Oral 480 ml IV Total 875 ml # Voids 2 General Appearance: WD/WN HEENT: normocephalic, atraumatic Respiratory/Chest: chest wall non-tender, lungs clear Breasts: no masses Cardiovascular: normal peripheral pulses Abdomen: normal bowel sounds Genitourinary: normal external genitalia Skin: no rash 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
--- NOTE | 2017-09-07 13:09 | Discharge Summary ---
Discharge Summary Hospital Course Date of Admission Sep 01, 2017 at 01:44 Date of Discharge Sep 05, 2017 at 17:29 Admitting Diagnosis pneumonia HPI Lacey Seay is a 27 year old female who was admitted on Sep 01, 2017 at 01:44 for Pneumonia Hospital Course [id number] Discharge Discharge Disposition Patient was discharged to [facility] Discharge Diagnoses: Heidi Stanford NP Sep 07, 2017 13:09
--- NOTE | 2017-09-07 23:24 | Cardiology Report ---
APPROVED REPORT EKG Measurement Heart [id number] Sinus tachycardia Nonspecific T wave abnormality Abnormal ECG
--- NOTE | 2017-09-11 08:16 | Discharge Summary 2 SIG ---
DATE OF ADMISSION: 09/01/2017 DATE OF DISCHARGE: 09/05/2017 CONSULTANTS: 1. Andi Crook M.D. 2. Margaret Way M.D. BRIEF HOSPITAL COURSE: The patient is a 27-year-old female with past medical history significant for substance abuse, heroin addiction, depression, and migraine, presented to the hospital from rehabilitation center after she was found to be unresponsive. She had been sober for the past five months and had a relapse of heroin. She was not trying to take her life, but she was found to be in respiratory distress and heart rate was elevated. Her O2 saturation was down to 70% and Narcan was given by EMS. The patient started to wake up and was taken to the emergency room. On evaluation, chest x-ray showed right-sided infiltrates. She was noted to be hypoxemic despite being on oxygen. On examination, there was noted rales on the right base. She was pancultured. She was placed on Ventimask. EKG was in sinus tachycardia. She was admitted to telemetry for pneumonia. She was noted to have leukocytosis. WBC was 23.6 on admission. Blood culture showed growth of gram-positive cocci. She was started on IV vancomycin. Echocardiogram done showed ejection fraction of 55% with no evidence of left ventricular hypertrophy and negative pericardial effusion. Bacteremia, suspect contamination, however, the patient has intravenous drug use and could be real pathogen. Repeat blood culture was done. Surveillance blood culture did not isolate any growth. Vancomycin was then discontinued and the patient was cleared to be discharged off antibiotics. She was eventually discharged to sober living. FINAL DIAGNOSES: 1. Pneumonia, present on admission. 2. Opiate dependence. 3. Heroin overdose status post Narcan. 4. Depression. 5. Pulmonary edema. 6. Coagulase-negative Staphylococcus bacteremia. 7. Venous stasis. DISCHARGE DISPOSITION: The patient was discharged to [facility]. DISCHARGE MEDICATIONS: Refer to medication list. The patient is off antibiotics. ACTIVITY: As tolerated. Danny Pimentel M.D. I have been assigned to dictate discharge summary on this account and I was not involved in the patient's management. Heidi Stanford N.P. DR: YANELIS JOB#: [id number] CC: LALI
== END 2017-09-05 17:29 | disposition home or self-care (01) | DRG 917 ==
LOC: EDBD 22:05 → EMR 23:38 → EDBEDREQSVC 09-01 01:30 → 2E 09-01 01:44 → EDBEDREQ 09-01 03:48 → 3E 09-01 21:16
DX: T40.1X1A Poisoning by heroin, accidental (unintentional), initial encounter (principal); J18.9 Pneumonia, unspecified organism; J81.1 Chronic pulmonary edema; R78.81 Bacteremia; F11.20 Opioid dependence, uncomplicated; Y92.099 Unspecified place in other non-institutional residence as the place of occurrence of the external cause; R09.02 Hypoxemia; R00.0 Tachycardia, unspecified; D72.829 Elevated white blood cell count, unspecified; I87.8 Other specified disorders of veins; F32.9 Major depressive disorder, single episode, unspecified; Z88.1 Allergy status to other antibiotic agents; Z88.0 Allergy status to penicillin; Z72.0 Tobacco use
CPT/HCPCS: 36415; 71010; 80048; 80053; 80202; 80300; 80329; 81025; 82550; 83605; 83735; 83880; 84100; 85007; 85025; 85651; 86140; 86703; 87040; 87081; 87181; 93005; 93306; 94640; 94664; 99285; J2405; J8499